=== PATIENT | female | born 1985 ===

== ENCOUNTER 2024-10-20 21:23 | Inpatient (IN) | payer MEDICAID, OTHER ==
[2024-10-20] MEDS ORDERED: MAGNESIUM HYDROXIDE 2,400 MG/30 ML CUP PO PRN (22:10)
[2024-10-20] MEDS ORDERED: IBUPROFEN 600 MG TAB PO PRN (22:10)
[2024-10-20] MEDS ORDERED: MAG HYDROX/AL HYDROX/SIMETH 355 ML BOTTLE PO PRN (22:10)
[2024-10-20] MEDS ORDERED: hydrOXYzine HCL 25 MG TAB PO PRN (22:11)
[2024-10-20] MEDS ORDERED: OLANZapine 10 MG TAB PO PRN (22:11)
[2024-10-20] MEDS ORDERED: hydrOXYzine HCL 50 MG/ML 1 ML VIAL IM PRN (22:11)
[2024-10-20] MEDS ORDERED: OLANZapine 10 MG VIAL IM PRN (22:11)
[2024-10-21 07:57] LABS: Glucose,Whole Blood 141 mg/dL (70-110)
[2024-10-21 11:21] LABS: Basophils # (A) 0.03 10*3/uL (0.00-0.10); Basophils % (A) 0.4 %; Eosinophils # (A) 0.25 10*3/uL (0.04-0.35); Eosinophils % (A) 3.7 %; HCT 40.0 % (37.2-46.3); HGB 14.1 g/dL (12.0-15.0); Lymphocytes # (A) 1.91 10*3/uL (0.90-5.00); Lymphocytes % (A) 28.3 %; MCH 32.3 pg (27.0-32.0); MCHC 35.3 g/dL (32.0-37.0); MCV 91.5 fL (80.0-97.0); Monocytes # (A) 0.36 10*3/uL (0.20-1.00); Monocytes % (A) 5.3 %; Neutrophils # (A) 4.16 10*3/uL (1.80-7.70); Neutrophils % (A) 61.6 %; Platelet Count 202 10*3/uL (140-440); RBC 4.37 10*6/uL (4.10-5.20); RDW 13.0 % (11.5-14.5); WBC 6.76 10*3/uL (4.50-10.00)
[2024-10-21] MEDS: NICOTINE 14MG/24HR PATCH TRANSDERM SCH (11:28)
[2024-10-21 11:33] LABS: ALT 132 U/L (4-34); AST 93 U/L (14-36); African American GFR (CKD) >90 (>60 ml/min/1.73 sqM); Albumin 4.1 g/dL (3.5-5.0); Alkaline Phosphatase 87 U/L (38-126); Anion Gap 11 mmol/L; Blood Urea Nitrogen 8 mg/dL (7-17); Calcium 10.3 mg/dL (8.4-10.2); Carbon Dioxide 23 mmol/L (22-30); Chloride 108 mmol/L (98-107); Glucose 144 mg/dL (74-99); Non-African American GFR(CKD) >90 (>60 ml/min/1.73 sqM); Potassium 3.8 mmol/L (3.5-5.1); Sodium 142 mmol/L (137-145); Total Protein 6.1 g/dL (6.3-8.2)
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
[2024-10-21 12:45] LABS: Glucose,Whole Blood 112 mg/dL (70-110)
[2024-10-21] MEDS: ARIPiprazole 5 MG TAB PO SCH (12:49)
[2024-10-21] MEDS ORDERED: ALBUTEROL INHALER 60 PUFF/8 GM INHALER (MHU) INHALATION PRN (17:12)
--- NOTE | 2024-10-21 17:13 | P.MDCNMH ---
History of Present Illness H&P Date: 10/21/24 Chief Complaint: Medical management 38-year-old woman with a medical history of migraines, COPD, diabetes mellitus, liver disease, memory impairment, polysubstance user presented for mental health evaluation. Medicine was consulted for medical management. Patient has multi ple medical comorbidities but has no acute complaints at this time other than headache. She does not appear to have photophobia, phonophobia. Patient is hemodynamically stable. CBC is unremarkable. Basic metabolic panel is unremarkable. Liver function test show AST of 93, ALT of 132. A1c is 6.5. No images to review All Systems reviewed and pertinent positives and negatives noted in HPI, all other symptoms are negative Gen: In NAD, non-toxic HEENT: normocephalic, atraumatic, hearing acuity is intant, mucous membranes moist CVS: perfusing all extremities well, no pitting edema, Respiratory: symmetric chest expansion, no accessory muscle use, GI: soft, NTTP, ND, : no suprapubic tenderness, no CVA tenderness MSK/Derm: no rashes, cyanosis Neuro: CN II-XII intact, no motor weakness, Psych: cooperative, euthymic mood, judgment and insight is intact Labs and imaging as above Assessment/plan: Diabetes type 2 - Initiate patient on metformin 500 mg twice daily, A1c is reviewed and 6.5% - Refer to PCP for ongoing management - Diet and exercise counseling on discharge - Initiate moderate intensity statin with atorvastatin 40 mg nightly History of COPD without exacerbation - Referred to primary care physician for pulmonary function tests to determine severity - Smoking and substance cessation counseling - Albuterol as needed - Agree with nicotine patch Elevated liver enzymes - Differential includes alcoholic liver disease +/- nonalcoholic fatty liver disease - Weight loss counseling, EtOH cessation - Outpatient follow-up for repeat labs in 6 weeks postdischarge Polysubstance abuse - Cessation counseling and care per primary team Thank for this consult, please reach out with any questions or concerns Past Medical History Past Medical History: COPD, Diabetes Mellitus, Liver Disease, Memory Impairment, Skin Disorder Additional Past Medical History / Comment(s): DM type 2, 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, tachycardia, plaque psoriasis History of Any Multi-Drug Resistant Organisms: None Reported Past Surgical History: Cholecystectomy, Hernia Repair Additional Past Surgical History / Comment(s): 3 Hernia Repair surgeries, 2 c- sections, Liver Biopsy Past Anesthesia/Blood Transfusion Reactions: No Reported Reaction Smoking Status: Current every day smoker - Past Family History Mother History Unknown: Yes Medications and Allergies Allergies Allergy/AdvReac Type Severity Reaction Status Date / Time codeine Allergy Anaphylaxis Verified 10/21/24 02:06 Mushroom Allergy Anaphylaxis Verified 10/21/24 02:06 eric cr Allergy Anaphylaxis Uncoded 10/21/24 02:06 Physical Exam Osteopathic Statement: *. No significant issues noted on an osteopathic structural exam other than those noted in the History and Physical/Consult. Vitals: Vital Signs Temp Pulse Resp BP Pulse Ox 10/21/24 11:30 97.9 F 78 16 95/65 97 10/21/24 00:35 97.9 F 83 16 97/63 96 Intake and Output 10/21/24 10/21/24 10/21/24 06:59 14:59 22:59 Other: Weight 92.59 kg Cranial Nerve Examination - Cranial Nerves Cranial Nerve II- Optic: Intact Cranial Nerve III- Oculomotor: Intact Cranial Nerve IV- Trochlear: Intact Cranial Nerve V- Trigeminal: Intact Cranial Nerve - Abducens: Intact Cranial Nerve VII- Facial: Intact Cranial Nerve VIII- Auditory: Intact Cranial Nerve IX- Glossopharyngeal: Intact Cranial Nerve X- Vagus: Intact Cranial Nerve XI- Accessory: Intact Cranial Nerve XII- Hypoglossal: Intact Results CBC & Chem 7: 10/21/24 10:53 10/21/24 10:53 Labs: Abnormal Lab Results - Last 24 Hours (Table) 10/21/24 10/21/24 10/21/24 Range/Units 07:54 10:53 10:53 MCH 32.3 H (27.0-32.0) pg Immature Gran # 0.05 H (0.00-0.04) 10*3/uL Chloride (98-107) mmol/L Creatinine (0.52-1.04) mg/dL Glucose (74-99) mg/dL POC Glucose (mg/dL) 141 H (70-110) mg/dL Hemoglobin A1c 6.5 H (<=6.0) % Calcium (8.4-10.2) mg/dL AST (14-36) U/L ALT (4-34) U/L Total Protein (6.3-8.2) g/dL 10/21/24 10/21/24 Range/Units 10:53 12:43 MCH (27.0-32.0) pg Immature Gran # (0.00-0.04) 10*3/uL Chloride 108 H (98-107) mmol/L Creatinine 0.49 L (0.52-1.04) mg/dL Glucose 144 H (74-99) mg/dL POC Glucose (mg/dL) 112 H (70-110) mg/dL Hemoglobin A1c (<=6.0) % Calcium 10.3 H (8.4-10.2) mg/dL AST 93 H (14-36) U/L ALT 132 H (4-34) U/L Total Protein 6.1 L (6.3-8.2) g/dL
[2024-10-21 17:34] LABS: Glucose,Whole Blood 118 mg/dL (70-110)
[2024-10-21] MEDS: metFORMIN 500 MG TAB PO SCH (17:51)
[2024-10-21 20:04] LABS: Glucose,Whole Blood 138 mg/dL (70-110)
[2024-10-21] MEDS: ATORVASTATIN 40 MG TAB PO SCH (20:38)
[2024-10-21] MEDS: MELATONIN 3 MG TABLET PO SCH (20:38)
[2024-10-22 07:42] LABS: Glucose,Whole Blood 142 mg/dL (70-110)
--- NOTE | 2024-10-22 10:49 | P.PN ---
Subjective Progress Note Date: 10/22/24 Principal diagnosis: Major Depression rule out Bipolar depressed SUBJECTIVE: She could not sleep at home and now is sleepy all the time, no restlessness, she did take Cymbalta before and felt that part of her relapse into depression. She developed, "the flu" and so stopped her meds. She can not remember the dose. She wants to go home but can't explain what has changed in terms of dealing with the painful realities that made her depressed. MENTAL STATUS EXAM: General Appearance: Patient appears to be mildly overweight, short hair, wearing glasses, stated age is alert, directable, and attempts to cooperate. Patient appears to have poor hygiene and grooming. Behavior: Patient is seated without any agitated behavior. Attempts to cooperate Speech: Patient's speech is fluent and nonpressured. Soft tone of voice Mood/Affect: Patient reports their mood is depressed and anxious, affect is congruent and constricted. Suicidality/Homicidality: Patient denies having any homicidal ideation intent or plan. Denies any suicidal ideations intent or plan Perceptions: Patient denies any visual hallucinations and denies any auditory hallucinations Though content/process: There is no evidence of any delusional thought content and thought process is linear and goal-directed. Fairly concrete Memory and concentration: AOX3, grossly intact for the purposes of this session. Can spell "WORLD" backwards Judgment and insight: Poor STRENGTHS/WEAKNESSES: strength is that patient is resilient. Weakness is that patient has poor judgment and is impulsive INTELLECT: Average IMPRESSIONS: Some, "flight int health" Depressive disorder unspecified, rule out bipolar depression versus major depressive disorder Cannabis use disorder, mild Nicotine dependence PLAN: leave the abilify low due to drowsiness and consider raising tomorrow -Patient is admitted under voluntary status to MHU for stabilization of psychiatric symptoms and safety. Patient has signed adult voluntary form and has signed medication consent and is placed in patient's chart. -Medications : Cymbalta 30 mg twice daily for her mood/anxiety, Abilify 2.5 mg daily for mood stabilization/adjunct, melatonin 6 mg nightly for sleep -vistaril and zyprexa PRN for agitation/aggression Patient states they do not want rehab and wish to cut back subtance use on their own -Patient was informed of the risks, benefits and side effects of the medications and patient verbally consented to taking the medications. Patient signed med consent form and was placed in chart. Patient was offered medication information and declined it -Internal Medicine consult to perform medical evaluation and physical. -NRT -nicotine patch -SW on board for discharge planning. Encourage patient to participate in groups to work on coping skills. s Objective - Vital Signs Vital signs: Vital Signs Temp 97.4 F L 10/22/24 08:43 Pulse 86 10/22/24 08:43 Resp 18 10/21/24 21:49 BP 108/61 10/22/24 09:23 Pulse Ox 96 10/22/24 08:43 FiO2 - Labs CBC & Chem 7: 10/21/24 10:53 10/21/24 10:53 Labs: Abnormal Lab Results - Last 24 Hours (Table) 10/21/24 10/21/24 10/21/24 Range/Units 10:53 10:53 10:53 MCH 32.3 H (27.0-32.0) pg Immature Gran # 0.05 H (0.00-0.04) 10*3/uL Chloride 108 H (98-107) mmol/L Creatinine 0.49 L (0.52-1.04) mg/dL Glucose 144 H (74-99) mg/dL POC Glucose (mg/dL) (70-110) mg/dL Hemoglobin A1c 6.5 H (<=6.0) % Calcium 10.3 H (8.4-10.2) mg/dL AST 93 H (14-36) U/L ALT 132 H (4-34) U/L Total Protein 6.1 L (6.3-8.2) g/dL 10/21/24 10/21/24 10/21/24 Range/Units 12:43 17:32 20:03 MCH (27.0-32.0) pg Immature Gran # (0.00-0.04) 10*3/uL Chloride (98-107) mmol/L Creatinine (0.52-1.04) mg/dL Glucose (74-99) mg/dL POC Glucose (mg/dL) 112 H 118 H 138 H (70-110) mg/dL Hemoglobin A1c (<=6.0) % Calcium (8.4-10.2) mg/dL AST (14-36) U/L ALT (4-34) U/L Total Protein (6.3-8.2) g/dL 10/22/24 Range/Units 07:40 MCH (27.0-32.0) pg Immature Gran # (0.00-0.04) 10*3/uL Chloride (98-107) mmol/L Creatinine (0.52-1.04) mg/dL Glucose (74-99) mg/dL POC Glucose (mg/dL) 142 H (70-110) mg/dL Hemoglobin A1c (<=6.0) % Calcium (8.4-10.2) mg/dL AST (14-36) U/L ALT (4-34) U/L Total Protein (6.3-8.2) g/dL
[2024-10-22 12:39] LABS: Glucose,Whole Blood 100 mg/dL (70-110)
[2024-10-22 16:47] LABS: Glucose,Whole Blood 107 mg/dL (70-110)
[2024-10-22 19:53] LABS: Glucose,Whole Blood 111 mg/dL (70-110)
--- NOTE | 2024-10-23 07:22 | P.PN ---
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 She developed, "the flu" and so stopped her meds. She can not remember the dose. She wants to go home but can't explain what has changed in terms of dealing with the painful realities that made her depressed. MENTAL STATUS EXAM: General Appearance: Patient appears to be mildly overweight, short hair, wearing glasses, stated age is alert, directable, and attempts to cooperate. Patient appears to have poor hygiene and grooming. Behavior: Patient is seated without any agitated behavior. Attempts to cooperate Speech: Patient's speech is fluent and nonpressured. Soft tone of voice Mood/Affect: Patient reports their mood is depressed and anxious, affect is congruent and constricted. Suicidality/Homicidality: Patient denies having any homicidal ideation intent or plan. Denies any suicidal ideations intent or plan Perceptions: Patient denies any visual hallucinations and denies any auditory hallucinations Though content/process: There is no evidence of any delusional thought content and thought process is linear and goal-directed. Fairly concrete Memory and concentration: AOX3, grossly intact for the purposes of this session. Can spell "WORLD" backwards Judgment and insight: Poor STRENGTHS/WEAKNESSES: strength is that patient is resilient. Weakness is that patient has poor judgment and is impulsive INTELLECT: Average IMPRESSIONS: Some, "flight into health" Depressive disorder unspecified, rule out bipolar depression versus major depressive disorder Cannabis use disorder, mild Nicotine dependence PLAN: leave the abilify low due to drowsiness and consider raising tomorrow -Patient is admitted under voluntary status to MHU for stabilization of psychiatric symptoms and safety. Patient has signed adult voluntary form and has signed medication consent and is placed in patient's chart. -Medications : Cymbalta 60mg daily for her mood/anxiety, Abilify 2.5 mg daily for mood stabilization/adjunct, melatonin 6 mg nightly for sleep -vistaril and zyprexa PRN for agitation/aggression Patient states they do not want rehab and wish to cut back subtance use on their own -Patient was informed of the risks, benefits and side effects of the medications and patient verbally consented to taking the medications. Patient signed med consent form and was placed in chart. Patient was offered medication information and declined it -Internal Medicine consult to perform medical evaluation and physical. -NRT -nicotine patch -SW on board for discharge planning. Encourage patient to participate in groups to work on coping skills. Objective - Vital Signs Vital signs: Vital Signs Temp 96.1 F L 10/22/24 21:00 Pulse 91 10/22/24 21:00 Resp 16 10/22/24 21:00 BP 111/73 10/22/24 21:00 Pulse Ox 96 10/22/24 21:00 FiO2 - Labs CBC & Chem 7: 10/21/24 10:53 10/21/24 10:53 Labs: Abnormal Lab Results - Last 24 Hours (Table) 10/22/24 10/22/24 Range/Units 07:40 19:51 POC Glucose (mg/dL) 142 H 111 H (70-110) mg/dL
[2024-10-23 07:44] LABS: Glucose,Whole Blood 150 mg/dL (70-110)
[2024-10-23] MEDS: DULoxetine HCL 60 MG CAPSULE.DR PO SCH (08:53)
[2024-10-23 12:44] LABS: Glucose,Whole Blood 97 mg/dL (70-110)
[2024-10-23 17:38] LABS: Glucose,Whole Blood 120 mg/dL (70-110)
[2024-10-23 20:11] LABS: Glucose,Whole Blood 142 mg/dL (70-110)
[2024-10-24 07:40] LABS: Glucose,Whole Blood 143 mg/dL (70-110)
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
[2024-10-24 12:41] LABS: Glucose,Whole Blood 112 mg/dL (70-110)
[2024-10-24] MEDS ORDERED: FINASTERIDE 5 MG TAB PO SCH (12:45)
[2024-10-24 15:36] VITALS: BMI 32.2
[2024-10-24] MEDS: ACETAMINOPHEN TAB 325 MG TAB PO PRN (16:10)
[2024-10-24 17:40] LABS: Glucose,Whole Blood 102 mg/dL (70-110)
[2024-10-24 20:04] LABS: Glucose,Whole Blood 126 mg/dL (70-110)
[2024-10-24] MEDS ORDERED: DOXAZOSIN 2 MG TAB PO SCH (21:00)
[2024-10-24 23:12] VITALS: RESP 14
[2024-10-25 07:46] LABS: Glucose,Whole Blood 152 mg/dL (70-110)
[2024-10-25 08:18] VITALS: BP 102/63; PULSE 95; TEMP 97.6
[2024-10-25] MEDS ORDERED: MONTELUKAST 10 MG TAB PO SCH (09:00)
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
[2024-10-25 12:41] LABS: Glucose,Whole Blood 102 mg/dL (70-110)
== END 2024-10-25 14:09 | disposition home or self-care (01) | DRG 751 ==
LOC: 3MHU 10-21 00:23
PROVIDERS: ADMIT Psychiatry & Neurology Psychiatry; ATTEND Psychiatry & Neurology Psychiatry
DX: F32.A Depression, unspecified (principal); F12.10 Cannabis abuse, uncomplicated; J44.9 Chronic obstructive pulmonary disease, unspecified; E11.9 Type 2 diabetes mellitus without complications; R45.851 Suicidal ideations; K76.9 Liver disease, unspecified; F17.210 Nicotine dependence, cigarettes, uncomplicated; F17.290 Nicotine dependence, other tobacco product, uncomplicated; F43.10 Post-traumatic stress disorder, unspecified; E73.9 Lactose intolerance, unspecified; F41.9 Anxiety disorder, unspecified; G43.909 Migraine, unspecified, not intractable, without status migrainosus; L40.0 Psoriasis vulgaris; E66.3 Overweight; Z79.1 Long term (current) use of non-steroidal anti-inflammatories (NSAID); Z79.899 Other long term (current) drug therapy; Z88.5 Allergy status to narcotic agent; Z56.0 Unemployment, unspecified; Z91.51 Personal history of suicidal behavior; Z71.3 Dietary counseling and surveillance; Z71.51 Drug abuse counseling and surveillance of drug abuser
CPT/HCPCS: 80053; 83036; 85025